=== PATIENT | male | born 1995 | race Caucasian/White ===

== ENCOUNTER 2019-04-01 10:11 | Emergency (ER) | payer MEDICAID ==
[~2019-04-01] VITALS: Ht 170.2 cm; Wt 59.0 kg
[2019-04-01 10:19] VITALS: BP 114/91
--- NOTE | 2019-04-01 10:19 | NUR ---
PT AMBULATED TO ER BED 09
--- NOTE | 2019-04-01 10:20 | NUR ---
BIB SELF. AAO X4. PT IS REQUESTING L SHOULDER SURGERY CONSULT. FREQUENT L SHOULDER DISCLOCATION FOR LAST 2 DAYS AGO. +2 RADIAL PULSE, <3 SEC CAP REFILL, +ROM. PT DENIES PAIN, SWELLING. ER TO EVALUATE PT.
--- NOTE | 2019-04-01 10:30 | NUR ---
DR GURROLA AT BEDSIDE FOR PT EVAL
[2019-04-01 12:23] VITALS: BP 116/86
--- NOTE | 2019-04-01 12:23 | NUR ---
Patient discharged with v/s stable. Written and verbal after care instructions given and explained. Patient alert, oriented and verbalized understanding of instructions. Ambulatory with steady gait. All questions addressed prior to discharge. ID band removed. Patient advised to follow up with PMD. Rx of Voltaren delayed released tablet given. Patient educated on indication of medication including possible reaction and side effects. Opportunity to ask questions provided and answered.
== END 2019-04-01 12:23 | disposition home or self-care (01) ==
LOC: MED 10:11
DX: S43.402A Unspecified sprain of left shoulder joint, initial encounter (principal); X58.XXXA Exposure to other specified factors, initial encounter; Y93.89 Activity, other specified; Y92.89 Other specified places as the place of occurrence of the external cause; Y99.8 Other external cause status
CPT/HCPCS: 73030; 99283; Q0092